=== PATIENT | female | born 1970 | race Caucasian/White ===

== ENCOUNTER 2017-05-05 07:15 | Outpatient (CLI) | payer BC | END 2017-05-05 07:16 | disposition home or self-care (01) | LOC: BICMAMMO 07:15 | PROVIDERS: ATTEND Internal Medicine | DX: Z12.31 Encounter for screening mammogram for malignant neoplasm of breast (principal) | CPT/HCPCS: 77063; 77067; G0202 ==

== ENCOUNTER 2018-06-05 08:38 | Outpatient (CLI) | payer BC | END 2018-06-05 08:39 | disposition home or self-care (01) | LOC: BICMAMMO 08:38 | PROVIDERS: ATTEND Internal Medicine | DX: Z12.31 Encounter for screening mammogram for malignant neoplasm of breast (principal); N92.4 Excessive bleeding in the premenopausal period; N63.10 Unspecified lump in the right breast, unspecified quadrant; Z98.82 Breast implant status | CPT/HCPCS: 77063; 77067 ==

== ENCOUNTER 2018-06-08 08:15 | Outpatient (CLI) | payer BC ==
--- NOTE | 2018-06-08 09:45 | BD ---
DEXA BONE DENSITY STUDY: Date: 06/08/18 HISTORY: Postmenopausal. FINDINGS: Lumbar Spine: BMD (g/cm2) L1 0.857 T-Score: -1.2 L2 0.889 T-Score: -1.3 L3 0.964 T-Score: -1.1 L4 1.054 T-Score: -0.1 Total 0.949 T-Score: -0.9 Left Femoral Neck: 0.726 T-Score: -1.1 Total Femur: 1.026 T-Score: +0.7 IMPRESSION: 1. Normal bone mineral density of the lumbar spine and osteopenia of the left femoral neck. 2. The 10 year fracture risk for a major osteoporotic fracture is 3.6% and for a hip fracture is 0.2 %. These fracture probabilities are calculated for an untreated patient. POS: TPC
--- NOTE | 2018-06-08 09:49 | ULT ---
ULTRASOUND RIGHT BREAST: Date: 06/08/18 INDICATION: Ultrasound was requested due to a nodular density seen on mammography. FINDINGS: There is an oblong-shaped cyst seen at 10 o'clock right breast, which corresponds to the mammogram de nsity. This has benign characteristics. IMPRESSION: Benign cyst right breast. Recommend routine follow-up. Final BIRADS is a BIRADS Category 2 - Benign f indings. POS: OFF
== END 2018-06-08 08:16 | disposition home or self-care (01) ==
LOC: BICMAMMO 08:15
PROVIDERS: ATTEND Internal Medicine
DX: M81.0 Age-related osteoporosis without current pathological fracture (principal); M85.89 Other specified disorders of bone density and structure, multiple sites
CPT/HCPCS: 77080

== ENCOUNTER 2018-08-29 03:30 | Outpatient (CLI) | payer BC ==
[2018-08-29 15:22] LABS: #Eosinphils 0.1 thou/uL (0.0-0.7); #Lymphocytes 2.4 thou/uL (1.20-3.40); #Monocytes 0.5 thou/uL (0.11-0.59); #Neutrophils 5.4 thou/uL (1.40-6.50); %Basophils 0.6 % (0.0-1.0); %Eosinophils 1.2 % (0.0-10.0); %Lymphocytes 28.4 % (21.0-51.0); %Monocytes 6.1 % (0.0-10.0); %Neutrophils 63.8 % (42.0-75.0); Hemoglobin 12.3 g/dL (12.0-16.0); Mean Corpuscular HGB CONC 33.7 g/dL (32.0-36.0); Mean Corpuscular Hemoglobin 31.2 pg (27.0-31.0); Mean Corpuscular Volume 92.7 fL (78.0-98.0); Mean Platelet Volume 8.7 fL (7.4-10.4); Platelet Count 301 thou/uL (130-400); RBC Distribution Width 12.1 % (11.5-14.5); Red Blood Cell (RBC) Count 3.93 mill/uL (4.20-5.40); White Blood Cell (WBC) Count 8.5 thou/uL (4.8-10.8)
[2018-08-29 15:42] LABS: Anion Gap 11 mmol/L (10-20); BUN (Urea Nitrogen) 16 mg/dL (7.0-18.7); Calc. Creatinine Clearance 0 mL/min (70-130); Calcium 9.8 mg/dL (7.8-10.44); Carbon Dioxide 27 mmol/L (22-29); Chloride 104 mmol/L (98-107); Estimated GFR-MDRD 79; Glucose 92 mg/dL (70-105); Potassium 3.8 mmol/L (3.5-5.1); Sodium 138 mmol/L (136-145)
--- NOTE | 2018-08-31 07:15 | EKG ---
Test Reason : Blood Pressure : / mmHG Vent. Rate : 081 BPM Atrial Rate : 081 BPM P-R Int : 180 ms QRS Dur : 088 ms QT Int : 384 ms P-R-T Axes : 053 025 053 degrees QTc Int : 446 ms Normal sinus rhythm Possible Anterior infarct , age undetermined /poor R wave progression Abnormal ECG When compared with ECG of 14-DEC-2016 15:16, No significant change was found Confirmed by CRISTY MARISCAL ([id number]) on 08/31/2018 7:14:51 AM Referred By: SHARRI Confirmed By:CRISTY MARISCLA
== END 2018-08-29 03:31 | disposition home or self-care (01) ==
LOC: LABBT 03:30
PROVIDERS: ATTEND Orthopaedic Surgery
DX: Z01.818 Encounter for other preprocedural examination (principal); M23.42 Loose body in knee, left knee
CPT/HCPCS: 80048; 85025; 93005; 93010

== ENCOUNTER 2018-08-31 09:32 | Day surgery (SDC) | payer BC ==
[2018-08-29 13:32] VITALS: BMI 29.7
[2018-08-31] MEDS ORDERED: PROPOFOL 20 ML ONE (10:35)
[2018-08-31] MEDS ORDERED: Acetaminophen 500 MG TAB ONE (10:48)
[2018-08-31] MEDS ORDERED: Gabapentin 300 MG CAP ONE ×2 (10:48→10:49)
[2018-08-31] MEDS ORDERED: Bupivacaine/Epinephrine 0.25% 30 ML VIAL ONE (11:35)
[2018-08-31] MEDS ORDERED: Bupivacaine HCl 0.5%/Epinephrine 1:200,000/PF 30 ml Vial ONE ×2 (11:35→15:30)
[2018-08-31] MEDS ORDERED: Fentanyl 100 MCG/2 ML VIAL ONE (11:36)
[2018-08-31] MEDS ORDERED: Lidocaine 2% w/Epinephrine 1:200K 20 ML VIAL ONE (15:30)
[2018-08-31] MEDS ORDERED: Lidocaine 1% PF 5 ML VIAL ONE (16:37)
[2018-08-31] MEDS ORDERED: Glycopyrrolate 0.2 MG/ML 5 ML SYRINGE ONE (16:37)
[2018-08-31] MEDS ORDERED: Rocuronium Bromide 10 MG/ML (10ML VIAL) ONE (16:37)
[2018-08-31] MEDS ORDERED: Ondansetron PF 4 MG/2 ML Vial ONE (16:37)
[2018-08-31] MEDS ORDERED: PROPOFOL 200 MG/20 ML VIAL ONE (16:37)
[2018-08-31] MEDS ORDERED: Dexamethasone 20 MG/5 ML VIAL ONE (16:37)
[2018-08-31] MEDS ORDERED: Ketorolac Tromethamine 30 MG/ML VIAL ONE (16:37)
--- NOTE | 2018-08-31 19:42 | OP ---
DATE OF PROCEDURE: 08/31/2018 PREOPERATIVE DIAGNOSIS: Left knee patellofemoral arthritis with large bony loose body and circumferential osteophytes. POSTOPERATIVE DIAGNOSIS: Left knee patellofemoral arthritis with large bony loose body and circumferential osteophytes. PROCEDURES PERFORMED: 1. Left knee arthroscopy with debridement or shaving of peripheral osteophytes/impinging osteophytes. 2. Removal of large bony loose body greater than 1.5 cm in diameter. MANAGER MANAGED BACKUP SERVICES: None. BLOOD LOSS: Minimal. COMPLICATIONS: None. ANESTHESIA: The patient did have a general anesthetic as well as a local knee block. DISPOSITION: She went to [facility] in stable condition. INDICATIONS FOR PROCEDURE: This is a 47-year-old active female comes in with what is presumed to be a loose body right off the patella on the medial aspect of the knee. She is also known to have significant arthritic change in the patellofemoral joint and has some osteophytes that appear to be impinging in the soft tissue. At this time, she is presenting for debridement and shaving and removal of said loose body. DESCRIPTION OF PROCEDURE: After all appropriate consent forms were explained and signed, she was taken back to the operative room and at this time was given general anesthetic. Once the local anesthesia was appropriate, tourniquet was placed in left thigh. Leg was placed in arthroscopic leg bowen. The limb was then prepped and draped in standard surgical fashion. Limb was exsanguinated. Tourniquet was taken to 250 mmHg. Inferolateral portal was established. Scope was placed into the knee joint. A needle localization technique was then used to make a medial working portal. Diagnostic arthroscopy was commenced in the notch. ACL and PCL were probed, found to be intact. There was an impinging osteophyte in the notch, that was impinging on the ACL and pushing in and indenting it and this would later be taken down with a eleno. We then turned our attention to the medial compartment. The patient was found to have an intact meniscus. The tibia overall was in good condition. 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 A small unstable chondral flap was taken down with a shaver to a stable base. The lateral compartment was evaluated. Again, the lateral meniscus was found to be intact. Femur and tibia were in good condition. There were some significant synovitic changes underneath the lateral meniscus, which were removed with the shaver. At this time, the gutters were swept through. There were some impinging osteophytes medially and laterally with a significant amount of synovitic tissue. Synovitic tissue was removed on both sides. We then got to the patellofemoral joint. At this time, it was noted that the lateral femoral condyle/trochlea region was essentially devoid of cartilage and had smooth denuded bone. Majority of the undersurface of patella was the same. There was a large bony osteophyte just attached by a small piece of soft tissue onto the medial aspect of the patella. This was grasped with a grasper, was unable to be pulled out of our medial portal secondary to its size, but once the medial portal was enlarged, this was removed. At this time, we then took the eleno and burred down only the bone spurs, which appeared to be impinging on the soft tissue under direct visualization through range of motion. Shaver was used to remove any soft tissue, and at this time, once we had done this circumferentially, knee was put through full range of motion and was felt to be at this time about as good as we are going to be able to make this knee. We then removed the scope, drained the fluid out of the portals, and once this was done, our lateral portal was closed with simple nylon stitch. The medial portal secondary to its size had a Vicryl stitch placed deep to close the capsule, subdermal Vicryl buried suture, and then nylon sutures. A sterile bulky soft tissue dressing was applied to the leg. The patient was awakened and taken to recovery room in stable condition. Prior to awakening her, the tourniquet was let down and the toes pinked up nicely. The patient did receive preoperative IV antibiotics, and all counts were correct at the end of the case. Job ID: [id number]
== END 2018-08-31 14:10 | disposition home or self-care (01) ==
LOC: SDC 09:32
PROVIDERS: ATTEND Orthopaedic Surgery
PROC: 0SBD4ZZ Excision of Left Knee Joint, Percutaneous Endoscopic Approach (ICD-10-PCS; principal; 2018-08-31)
DX: M17.12 Unilateral primary osteoarthritis, left knee (principal); M23.42 Loose body in knee, left knee; M25.762 Osteophyte, left knee; M94.262 Chondromalacia, left knee; E03.9 Hypothyroidism, unspecified; Z79.899 Other long term (current) drug therapy; Z88.2 Allergy status to sulfonamides
CPT/HCPCS: J0670; J0690; J1100; J1885; J2001; J2405; J2704; J3010

== ENCOUNTER 2018-11-20 19:24 | Emergency (ER) | payer BC ==
--- NOTE | 2018-11-20 21:08 | ULT ---
EXAM: Left lower extremity venous Doppler PROVIDED CLINICAL HISTORY: Left lower extremity pain and edema FINDINGS: Grayscale and color Doppler sonography with spectral analysis was performed of the left common femora l, femoral, popliteal, posterior tibial, greater saphenous and profunda femoral veins. The evaluated venous structures demonstrate a normal sonographic appearance. IMPRESSION: No sonographic evidence for left lower extremity deep venous thrombosis.
== END 2018-11-20 21:19 | disposition home or self-care (01) ==
LOC: SCSER 19:24
DX: R60.0 Localized edema (principal); E03.9 Hypothyroidism, unspecified; Z79.899 Other long term (current) drug therapy

== ENCOUNTER 2023-03-06 09:45 | Outpatient (CLI) | payer BC | END 2023-03-06 09:46 | disposition home or self-care (01) | LOC: BICMAMMO 09:45 | PROVIDERS: ATTEND Physician Assistant | DX: N63.10 Unspecified lump in the right breast, unspecified quadrant (principal); N64.89 Other specified disorders of breast | CPT/HCPCS: 19083; 88305; G0279 ==